=== PATIENT | male | born 1955 | race Caucasian/White ===

== ENCOUNTER 2016-10-30 08:51 | Day surgery (SDC) | payer MEDICARE ==
[~2016-10-30] VITALS: Ht 175.3 cm; Wt 77.1 kg
[~2016-10-30 08:51] MED LIST: DIAZ5TAB3 PO; HYDR-3740 PO
[2016-10-30] MEDS ORDERED: Iohexol 240 mg/mL 10 mL Inj ONE (08:52)
[2016-10-30] MEDS ORDERED: Dexamethasone 10 mg/mL Inj ONE (08:52)
[2016-10-30] MEDS ORDERED: Lidocaine PF 1% 5 mL Inj ONE (08:52)
[2016-10-30] MEDS ORDERED: OMEP20TA86 PO (08:59)
[2016-10-30 09:05] VITALS: BP 128/74; PULSE 75; RESP 14; O2SAT 97
--- NOTE | 2016-10-30 14:57 | PCM.PROC ---
Procedure Note Date of Service: Oct 30, 2016 Pre Procedure Diagnosis: PROCEDURE: LEFT C4 transforaminal epidural steroid injection PRE-PROCEDURE DIAGNOSIS: Cervical radiculopathy POST-PROCEDURE DIAGNOSIS: same INDICATION: 61-year-old patient with LEFT cervical radiculopathy referred by Dr. Weaver PERFORMED BY: Clive Noguera MD DESCRIPTION OF PROCEDURE: Patient was met in the holding area. Consent was signed, site was confirmed and all questions were answered. Patient was taken to the procedure suite and placed supine on the procedure table. An IV was placed with TKO NS. The side of the neck was prepped and draped in sterile fashion. The image intensifier was rotated to an oblique view to visualize the proper neuroforamen. Local anesthesia with 1% lidocaine was injected into the skin and superficial subcutaneous tissue. A 2 inch 25-gauge Quincke spinal needle was advanced towards the inferior/posterior aspect of the neural foramina. After the SAP of the neuroforamina was contacted with the spinal needle the bevel was directed anterior. The view was then changed to an AP view and the tip of the needle was stopped lateral to the sagittal midline of the articular pillar. Radiopaque contrast was injected under live fluoroscopy which demonstrated outline of the spinal nerve, dorsal root ganglion as well as spread into the epidural space. No vascular uptake was noted. 1 cc 1% lidocaine was injected. After 1 minute with no neurologic sequela, 10 mg of Decadron was injected. This was followed by another half cc of 1% lidocaine ANESTHESIA: Local. EBL: None. No Blood Products Used COMPLICATIONS: None SPECIMENS: None POST-PROCEDURE DISPOSITION: Patient was returned to the holding area in stable condition. They were discharged home when all discharge criteria were met. Evaluation/Physical Exam before discharge revealed: Preprocedure pain: 7/10. Post procedure pain: 0/10 DISCHARGE MEDICATIONS: (none unless otherwise noted) ASSESSMENT/ FOLLOW UP: [address] Kyle Noguera MD * Pain Management * Anesthesiology Clive Noguera MD Oct 30, 2016 14:57
== END 2016-10-30 23:59 | disposition home or self-care (01) ==
LOC: END 08:51
PROVIDERS: ATTEND Anesthesiology Pain Medicine
DX: M54.12 Radiculopathy, cervical region (principal)
CPT/HCPCS: 64479; J1100